=== PATIENT | male | born 1990 | race Caucasian/White ===

== ENCOUNTER 2017-08-03 19:26 | Inpatient (IN) | payer MEDICAID, OTHER ==
[2017-08-03 20:33] LABS: ADD MAN DIFF? NO
[2017-08-03 20:40] LABS: BASOPHIL # 0.1 10^3/ul (0.0-0.1); BASOPHILS % 0.8 % (0.0-2.0); EOSINOPHILS % 0.1 % (0.0-7.0); HEMATOCRIT 44.5 % (42.0-52.0); LYMPHOCYTES # 1.6 10^3/ul (0.8-2.9); LYMPHOCYTES % 11.9 % (15.0-51.0); MEAN CORPUSCULAR HEMOGLOBIN 33.5 pg (29.0-33.0); MEAN CORPUSCULAR VOLUME 93.1 fl (82.0-101.0); MEAN PLATELET VOLUME 10.8 fl (7.4-10.4); MONOCYTE # 0.9 10^3/ul (0.3-0.9); MONOCYTES % 6.3 % (0.0-11.0); NEUTROPHIL # 10.9 10^3/ul (1.6-7.5); NEUTROPHILS % 80.3 % (39.0-77.0); PLATELET COUNT 415 10^3/UL (140-415); RED BLOOD COUNT 4.78 10^6/ul (4.70-6.10); RED CELL DISTRIBUTION WIDTH 12.5 % (11.5-14.5)
[2017-08-03 20:40] LABS: WHITE BLOOD COUNT 13.6 10^3/ul (4.8-10.8)
[2017-08-03 21:00] LABS: ANION GAP 23 (8-16); BLOOD UREA NITROGEN 14 mg/dl (7-20); CALCIUM 10.2 mg/dl (8.4-10.2); CARBON DIOXIDE 27 mmol/L (21-31); CHLORIDE 97 mmol/L (97-110); CREATININE 0.87 mg/dl (0.61-1.24); GLUCOSE 114 mg/dl (70-220); POTASSIUM 3.2 mmol/L (3.5-5.1); SODIUM 144 mmol/L (135-144)
[2017-08-03 21:01] LABS: ETHANOL < 10.0 mg/dl
[2017-08-03] MEDS: SOD CHLORIDE 0.9% 1,000 ML IV ×2 (21:01→23:19)
[2017-08-03 21:06] LABS: LACTIC ACID 4.8 mmol/L (0.5-2.0)
[2017-08-03 21:12] LABS: TROPONIN-I < 0.012 ng/ml (0.00-0.12)
[2017-08-03 22:01] LABS: AMPHETAMINE/METHAMPHETAMINE Negative (NEGATIVE); BARBITURATES Negative (NEGATIVE); BENZODIAZEPINES Negative (NEGATIVE); CANNABINOIDS Negative (NEGATIVE); COCAINE Negative (NEGATIVE); OPIATES Negative (NEGATIVE)
[2017-08-03] MEDS: PIPER-TAZO 3.375 GM IV (PMX) 100 ML IVPB (23:19)
[2017-08-04] MEDS ORDERED: ONDANSETRON 4 MG INJ IV ×2 (01:00→02:00)
[2017-08-04] MEDS ORDERED: ACETAMINOPHEN 325 MG TAB PO ×2 (01:00→02:00)
[2017-08-04] MEDS: POTASSIUM CHLORIDE (SR) 20 MEQ TAB PO (01:50)
[2017-08-04] MEDS ORDERED: LORAZEPAM 2 MG INJ IV (02:00)
[2017-08-04] MEDS ORDERED: NA PHOSPHATE/BIPHOS 133 ML ENEMA PR (02:00)
[2017-08-04] MEDS ORDERED: NITROGLYCERIN (SL) 0.4 MG TAB SL (02:00)
[2017-08-04] MEDS ORDERED: NACL 0.9% 3 ML SYG IV (02:00)
[2017-08-04] MEDS ORDERED: HYDROCODONE/APAP (5/325) TAB PO (02:00)
[2017-08-04] MEDS ORDERED: morphine 2 MG INJ IV (02:00)
[2017-08-04] MEDS ORDERED: hydrALAzine 20 MG INJ IV (02:00)
[2017-08-04] MEDS ORDERED: MAGNESIUM HYDROXIDE 30ML CUP PO (02:00)
[2017-08-04] MEDS ORDERED: DOCUSATE SODIUM 100 MG CAP PO (02:00)
[2017-08-04] MEDS ORDERED: ALBUTEROL/IPRATROPIUM (NEB) 3 ML AMP HHN (02:00)
[2017-08-04 02:44] LABS: LACTIC ACID 2.8 mmol/L (0.5-2.0)
[2017-08-04] MEDS: SOD CHLORIDE 0.9% 1,000 ML IV ×3 (05:41→20:53)
[2017-08-04] MEDS: PANTOPRAZOLE (EC) 40 MG TAB PO (05:41)
[2017-08-04 08:20] LABS: LACTIC ACID 1.6 mmol/L (0.5-2.0)
[2017-08-04 08:42] LABS: FREE T4 (FREE THYROXINE) 0.75 ng/dl (0.79-2.35)
[2017-08-04] MEDS: MULTIVITAMINS 10 ML, THIAMINE 100 MG, FOLIC ACID 1 MG in SOD CHLORIDE 0.9% 1,000 ML IVPB (09:11)
[2017-08-04] MEDS: HEPARIN 5,000 UNIT/0.5 ML VIAL SC ×2 (09:14→20:52)
[2017-08-04 11:04] LABS: LACTIC ACID 1.3 mmol/L (0.5-2.0)
[2017-08-04 11:35] LABS: ALANINE AMINOTRANSFERASE 52 IU/L (13-69); ALBUMIN 3.6 g/dl (3.3-4.9); ALKALINE PHOSPHATASE 84 IU/L (42-121); ASPARTATE AMINO TRANSFERASE 34 IU/L (15-46); BILIRUBIN,INDIRECT 0.5 mg/dl (0-1.1); BILIRUBIN,TOTAL 0.5 mg/dl (0.2-1.3); LIPASE 54 U/L (23-300); MAGNESIUM 1.8 mg/dl (1.7-2.5); TOTAL PROTEIN 6.4 g/dl (6.1-8.1)
[2017-08-04 11:42] LABS: AMYLASE 58 U/L (11-123)
[2017-08-04 12:34] LABS: LACTIC ACID 1.1 mmol/L (0.5-2.0)
[2017-08-04] MEDS: CIPROFLOXACIN 400MG/D5W 200 ML IVPB ×2 (12:45→20:51)
[2017-08-04] MEDS: metroNIDAZOLE 500 MG/NS (PMX) 100 ML IVPB ×2 (14:30→22:05)
[2017-08-04 15:27] LABS: ADD UMIC NO; UR ASCORBIC ACID NEGATIVE (NEGATIVE); UR BILIRUBIN (Dip) NEGATIVE (NEGATIVE); UR BLOOD (Dip) NEGATIVE (NEGATIVE); UR CLARITY CLEAR (CLEAR); UR COLOR YELLOW (YELLOW); UR GLUCOSE (Dip) NEGATIVE (NEGATIVE); UR KETONES (Dip) NEGATIVE (NEGATIVE); UR LEUKOCYTE ESTERASE (Dip) NEGATIVE Leu/ul (NEGATIVE); UR NITRITE (Dip) NEGATIVE (NEGATIVE); UR SPECIFIC GRAVITY (Dip) 1.019 (1.003-1.030); UR TOTAL PROTEIN (Dip) NEGATIVE (NEGATIVE); UR UROBILINOGEN (Dip) NEGATIVE (NEGATIVE)
[2017-08-04 19:39] LABS: LACTIC ACID 2.8 mmol/L (0.5-2.0)
[2017-08-04] MEDS: SOD CHLORIDE 0.9% 500 ML IV (20:52)
[2017-08-05 01:13] LABS: LACTIC ACID 1.3 mmol/L (0.5-2.0)
[2017-08-05 04:50] LABS: ADD MAN DIFF? NO
[2017-08-05 04:53] LABS: WHITE BLOOD COUNT 7.1 10^3/ul (4.8-10.8)
[2017-08-05 04:53] LABS: BASOPHIL # 0.1 10^3/ul (0.0-0.1); BASOPHILS % 0.8 % (0.0-2.0); EOSINOPHILS # 0.2 10^3/ul (0.0-0.5); EOSINOPHILS % 3.3 % (0.0-7.0); HEMATOCRIT 37.6 % (42.0-52.0); HEMOGLOBIN 12.3 g/dl (14.0-18.0); LYMPHOCYTES # 2.2 10^3/ul (0.8-2.9); LYMPHOCYTES % 31.6 % (15.0-51.0); MEAN CORPUSCULAR HEMOGLOBIN 32.2 pg (29.0-33.0); MEAN CORPUSCULAR HGB CONC 32.7 g/dl (32.0-37.0); MEAN CORPUSCULAR VOLUME 98.4 fl (82.0-101.0); MEAN PLATELET VOLUME 11.1 fl (7.4-10.4); MONOCYTE # 0.6 10^3/ul (0.3-0.9); MONOCYTES % 8.1 % (0.0-11.0); NEUTROPHIL # 3.9 10^3/ul (1.6-7.5); NEUTROPHILS % 55.8 % (39.0-77.0); PLATELET COUNT 269 10^3/UL (140-415); RED BLOOD COUNT 3.82 10^6/ul (4.70-6.10); RED CELL DISTRIBUTION WIDTH 12.3 % (11.5-14.5)
[2017-08-05 05:23] LABS: CHOL/HDL RATIO 4.6 RATIO; HDL CHOLESTEROL 45 mg/dl (30-63); LDL CHOLESTEROL,CALCULATED 94 mg/dl; TRIGLYCERIDES 348 mg/dl (0-149)
[2017-08-05 05:23] LABS: CHOLESTEROL 209 mg/dl (100-200)
[2017-08-05 05:25] LABS: ANION GAP 9 (8-16); BLOOD UREA NITROGEN 7 mg/dl (7-20); CALCIUM 8.5 mg/dl (8.4-10.2); CARBON DIOXIDE 25 mmol/L (21-31); CHLORIDE 109 mmol/L (97-110); CREATININE 0.77 mg/dl (0.61-1.24); GLUCOSE 93 mg/dl (70-220); MAGNESIUM 1.9 mg/dl (1.7-2.5); PHOSPHORUS 3.9 mg/dl (2.5-4.9); POTASSIUM 4.3 mmol/L (3.5-5.1); SODIUM 139 mmol/L (135-144)
[2017-08-05] MEDS: SOD CHLORIDE 0.9% 1,000 ML IV (05:46)
[2017-08-05] MEDS: metroNIDAZOLE 500 MG/NS (PMX) 100 ML IVPB (05:46)
[2017-08-05] MEDS: PANTOPRAZOLE (EC) 40 MG TAB PO (05:48)
[2017-08-05 07:13] LABS: HEMOGLOBIN A1C 5.1 % (0-5.9)
[2017-08-05] MEDS: CIPROFLOXACIN 400MG/D5W 200 ML IVPB (08:38)
[2017-08-05] MEDS: THIAMINE 100 MG TAB PO (08:39)
[2017-08-05] MEDS: FOLIC ACID 1 MG TAB PO (08:39)
[2017-08-05] MEDS: HEPARIN 5,000 UNIT/0.5 ML VIAL SC (08:39)
[2017-08-05] MEDS: MULTIVITAMINS THERAPEUTIC TAB PO (08:40)
[2017-08-05] MEDS ORDERED: MULTIVITAMINS/VIT C 0.5ML (PO SYG) PO (09:00)
== END 2017-08-05 11:57 | disposition home or self-care (01) | DRG 392 ==
LOC: MS3 08-04 00:46 → E/R 19:26
DX: K30 Functional dyspepsia (principal); E87.6 Hypokalemia; F10.10 Alcohol abuse, uncomplicated; Y90.0 Blood alcohol level of less than 20 mg/100 ml
CPT/HCPCS: 36415; 71045; 74176; 80048; 80061; 80076; 80306; 80307; 81003; 82150; 83036; 83605; 83690; 83735; 84100; 84439; 84443; 84484; 85025; 87040; 87086; 93005; 96374; 99291-25

== ENCOUNTER 2018-12-06 20:38 | Emergency (ER) | payer MEDICAID, OTHER ==
[2018-12-06] MEDS ORDERED: PANTOPRAZOLE IV 80 MG in SOD CHLORIDE 0.9% 100 ML IVPB (22:06)
[2018-12-06 22:10] LABS: ADD MAN DIFF? NO
[2018-12-06] MEDS: SOD CHLORIDE 0.9% 1,000 ML IV (22:10)
[2018-12-06 22:13] LABS: BASOPHIL # 0.1 10^3/ul (0.0-0.1); BASOPHILS % 0.5 % (0.0-2.0); EOSINOPHILS % 0.1 % (0.0-7.0); HEMATOCRIT 48.8 % (42.0-52.0); LYMPHOCYTES # 1.7 10^3/ul (0.8-2.9); LYMPHOCYTES % 9.9 % (15.0-51.0); MEAN CORPUSCULAR HEMOGLOBIN 32.6 pg (29.0-33.0); MEAN CORPUSCULAR HGB CONC 34.8 g/dl (32.0-37.0); MEAN CORPUSCULAR VOLUME 93.7 fl (82.0-101.0); MEAN PLATELET VOLUME 11.1 fl (7.4-10.4); MONOCYTE # 0.9 10^3/ul (0.3-0.9); MONOCYTES % 5.1 % (0.0-11.0); NEUTROPHIL # 14.3 10^3/ul (1.6-7.5); NEUTROPHILS % 83.8 % (39.0-77.0); PLATELET COUNT 484 10^3/UL (140-415); RED BLOOD COUNT 5.21 10^6/ul (4.70-6.10); RED CELL DISTRIBUTION WIDTH 12.4 % (11.5-14.5)
[2018-12-06 22:13] LABS: WHITE BLOOD COUNT 17.1 10^3/ul (4.8-10.8)
[2018-12-06 22:17] LABS: INR 0.91; PROTIME 12.4 Sec (11.9-14.9)
[2018-12-06 22:20] LABS: ALANINE AMINOTRANSFERASE 142 IU/L (13-69); ALBUMIN 5.3 g/dl (3.3-4.9); ALBUMIN/GLOBULIN RATIO 1.39; ALKALINE PHOSPHATASE 132 IU/L (42-121); ANION GAP 15 (5-13); ASPARTATE AMINO TRANSFERASE 64 IU/L (15-46); BILIRUBIN,INDIRECT 0.6 mg/dl (0-1.1); BILIRUBIN,TOTAL 0.6 mg/dl (0.2-1.3); BLOOD UREA NITROGEN 19 mg/dl (7-20); CALCIUM 10.2 mg/dl (8.4-10.2); CARBON DIOXIDE 30 mmol/L (21-31); CHLORIDE 99 mmol/L (97-110); CREATININE 0.97 mg/dl (0.61-1.24); Estimated GFR > 60 mL/min (>60); GLUCOSE 140 mg/dl (70-220); LIPASE 55 U/L (23-300); POTASSIUM 3.6 mmol/L (3.5-5.1); SODIUM 144 mmol/L (135-144); TOTAL PROTEIN 9.1 g/dl (6.1-8.1)
[2018-12-06] MEDS: PANTOPRAZOLE 40 MG INJ IV (22:22)
[2018-12-06] MEDS: ONDANSETRON 4 MG INJ IV (22:22)
[2018-12-06 23:14] LABS: ETHANOL < 10.0 mg/dl (0-0)
[2018-12-07] MEDS: FAMOTIDINE 20 MG INJ IV (00:49)
[2018-12-07] MEDS: LIDOCAINE/MYLANTA 40 ML BTL PO (00:49)
[2018-12-07] MEDS: BELLADONNA/PHENOBARBITAL TAB PO (00:49)
== END 2018-12-07 01:12 | disposition home or self-care (01) ==
LOC: E/R 12-07 01:12
DX: R10.13 Epigastric pain (principal); D72.829 Elevated white blood cell count, unspecified; R74.0 Nonspecific elevation of levels of transaminase and lactic acid dehydrogenase [LDH]
CPT/HCPCS: 36415; 71045; 80053; 80307; 83690; 85025; 85610; 85730; 86850; 86900; 86901; 93005; 96374; 96375; 99285-25